=== PATIENT | male | born 1960 | race Native Hawaiian/Other Pacific Islander ===

== ENCOUNTER 2018-09-14 18:35 | Emergency (ER) | payer OTHER ==
[~2018-09-14] VITALS: Ht 172.7 cm; Wt 99.8 kg
[~2018-09-14 18:35] MED LIST: ASA LO-DOSE81 MG OR; CYCL10TA35 PO; PLAVIX75 MG PO; SIMV40TA57 PO
[2018-09-14 18:41] VITALS: TEMP 97.5
[2018-09-14 21:47] VITALS: BP 143/70
== END 2018-09-14 22:01 | disposition home or self-care (01) ==
LOC: ED 18:35
PROC: 2W3CX1Z Immobilization of Right Lower Arm using Splint (ICD-10-PCS; principal; 2018-09-14)
DX: M25.531 Pain in right wrist (principal); S60.221A Contusion of right hand, initial encounter; S50.11XA Contusion of right forearm, initial encounter; W01.0XXA Fall on same level from slipping, tripping and stumbling without subsequent striking against object, initial encounter; Y92.89 Other specified places as the place of occurrence of the external cause
CPT/HCPCS: 96372; 99283; J1885

== ENCOUNTER 2019-09-24 10:15 | Outpatient (CLI) | payer OTHER, MEDICARE | END 2019-09-24 21:51 | disposition home or self-care (01) | LOC: CT 10:15 | DX: F17.210 Nicotine dependence, cigarettes, uncomplicated (principal) | CPT/HCPCS: G0297-TC ==